=== PATIENT | male | born 1965 | race Caucasian/White ===

== ENCOUNTER 2019-02-19 10:57 | Emergency (ER) | payer MEDICAID ==
[~2019-02-19] VITALS: Ht 165.1 cm; Wt 104.3 kg
[2019-02-19 11:10] VITALS: BP 149/84
[2019-02-19] MEDS ORDERED: LIDOCAINE 1% HCL (LOCAL ANESTH.) INJ 20ML MDV IJ ONE (13:00)
[2019-02-19] MEDS ORDERED: DexAMETHasone SOD PHOS 10MG/1ML VIAL INJ IM ONE (13:00)
[2019-02-19] MEDS ORDERED: cefTRIAXone SOD 1,000 MG VL ONE (13:12)
[2019-02-19] MEDS ORDERED: cefTRIAXone W LIDOCAINE 1 GM IM IM ONE (13:15)
== END 2019-02-19 13:21 | disposition home or self-care (01) ==
LOC: ER 10:57
DX: M25.461 Effusion, right knee (principal); I10 Essential (primary) hypertension; Z88.8 Allergy status to other drugs, medicaments and biological substances
CPT/HCPCS: 20610; 73562; 96372; 99284; J0696; J1100; J2001

== ENCOUNTER 2019-02-21 17:57 | Emergency (ER) | payer MEDICAID ==
[~2019-02-21] VITALS: Ht 162.6 cm; Wt 106.6 kg
[2019-02-21 19:01] VITALS: BP 151/86
[2019-02-21 19:24] LABS: Basophils # (auto) 0.1 uL; Eosinophils # (auto) 0.1 uL; Hematocrit 46.1 % (41.0-53.0); Lymphocytes # (auto) 3.2 uL; Lymphocytes % (auto) 25.3 % (10.0-50.0); Mean Corpuscular Hemoglobin 28.3 pg (28.0-32.0); Mean Corpuscular Hgb Conc. 32.6 g/dL (32.0-36.0); Mean Corpuscular Volume 86.7 fL (80.0-100.0); Monocytes # (auto) 1.1 uL; Monocytes % (auto) 8.7 % (0.0-12.0); Neutrophils # (auto) 8.1 uL; Nucleated Red Blood Cells % 0.1 %; Platelet Count (auto) 311 10^3/uL (140-450); Red Blood Cells 5.32 10^6/uL (4.5-5.90); Red Cell Distribution Width 14.1 % (11.8-14.3); White Blood Cell 12.7 10^3/uL (4.4-10.8)
[2019-02-21 19:34] LABS: Alanine Aminotransferase 31 U/L (16-61); Albumin 3.7 g/dL (3.4-5.0); Anion Gap 9 (5-15); Blood Urea Nitrogen 27 mg/dL (7-18); Calcium 8.9 mg/dL (8.5-10.1); Carbon Dioxide 28 mmol/L (21-32); Chloride 107 mmol/L (98-107); Glucose 107 mg/dL (74-106); Potassium 4.3 mmol/L (3.5-5.1); Sodium 144 mmol/L (136-145)
[2019-02-21 19:41] LABS: Alkaline Phosphatase 80 U/L (45-117); Aspartate Aminotransferase 16 U/L (15-37); BUN/Creatinine Ratio 25.7; Bilirubin, Total 0.2 mg/dL (0.2-1.0); GFR African American 95 mL/min; GFR Non-African American 79 mL/min; Total Protein 7.6 g/dL (6.4-8.2)
== END 2019-02-22 00:34 | disposition home or self-care (01) ==
LOC: EDBD 17:57 → ER 18:03
DX: B34.9 Viral infection, unspecified (principal); F12.10 Cannabis abuse, uncomplicated; F15.10 Other stimulant abuse, uncomplicated; I10 Essential (primary) hypertension; I25.2 Old myocardial infarction; Z86.73 Personal history of transient ischemic attack (TIA), and cerebral infarction without residual deficits; Z88.1 Allergy status to other antibiotic agents; Z87.891 Personal history of nicotine dependence
CPT/HCPCS: 36415; 80053; 84484; 85025; 93005

== ENCOUNTER 2019-04-05 13:34 | Emergency (ER) | payer MEDICAID ==
[~2019-04-05] VITALS: Ht 165.1 cm; Wt 99.8 kg
[2019-04-05 13:35] VITALS: BP 144/80
== END 2019-04-05 15:08 | disposition left against medical advice (07) ==
LOC: ER 13:34 → EDBD 13:34 → ER 15:08
DX: S01.01XA Laceration without foreign body of scalp, initial encounter (principal); Z53.21 Procedure and treatment not carried out due to patient leaving prior to being seen by health care provider; Y09 Assault by unspecified means; Y93.89 Activity, other specified; Y99.8 Other external cause status; Y92.89 Other specified places as the place of occurrence of the external cause